=== PATIENT | male | born 1980 | race Caucasian/White ===

== ENCOUNTER 2017-07-13 13:25 | Emergency (ER) | payer MEDICAID ==
[~2017-07-13] VITALS: Wt 68.1 kg
[~2017-07-13 13:25] MED LIST: CIPR500T4 PO; METR500T PO; ONDA-43 PO
[2017-07-13] MEDS ORDERED: IBUPROFEN 600 MG TAB PO ONE (14:00)
[2017-07-13] MEDS ORDERED: DIPHTH/TET/ACEL PERTUSS (ADULT) 0.5 ML VIAL IM* ONE (14:00)
--- NOTE | 2017-07-13 14:34 | RADRPT ---
PROCEDURE: XR Finger. CLINICAL INDICATION: Left fifth finger pain and trauma. TECHNIQUE: Three views of the left the fifth finger. COMPARISON: None. FINDINGS: The osseous structures are intact. No destructive bony lesions are observed. Interosseous spaces jayme ear normal. Linear metallic density material is identified in the ventral soft tissues over the tuf t of the fifth distal phalanx. IMPRESSION: Linear metallic density material in the ventral soft tissues over the tuft of the fifth distal phala nx. This may reflect foreign body material in the soft tissues. If further characterization is neede d CT could be helpful. If there is high clinical suspicion for bony traumatic injury, further evaluation with CT should be considered. RPTAT: AA .Wilfrid Liriano MD, Date Time Electronically viewed and signed by .Wilfrid Liriano MD, MD on 07/13/2017 14:34 .P/
--- NOTE | 2017-07-13 15:31 | RADRPT ---
AMENDMENT: 07/13/2017 3:43:47 PM Emmanuel Sigala M.d Comparison: 07/13/2017 from 02:19 p.m. PROCEDURE: XR Finger. CLINICAL INDICATION: Foreign body removal in the left fifth digit TECHNIQUE: Three views of the left fifth digit. COMPARISON: None. FINDINGS: There are no fractures or dislocations. The previously noted foreign body in the distal fifth digit has decrease with a small 2 mm residual component. No radiopaque foreign body is identified. IMPRESSION: Decrease in the previously noted foreign body in the distal fifth digit with a 2 mm residual compone nt. RPTAT: HPNM Physician Vimal Date Time Electronically viewed and signed by Physician Vimal on 07/13/2017 15:43 /
--- NOTE | 2017-07-13 15:40 | ERD ---
ER Documentation Chief Complaint Chief Complaint LEFT 5TH FINGER INJURY WHILE CLEANING SINK HPI This 28-year-old male complains of left fifth digit pain and bleeding. History is significant for cleaning a sink in getting some broken ceramic in the tip of his left fifth digit. Denies restricted range of motion weakness. Tetanus is not up-to-date. ROS All systems reviewed and are negative except as per history of present illness. Medications Home Meds Active Scripts Cephalexin* (Keflex*) 500 Mg Capsule, 500 MG PO QID for 7 Days, CAP Prov:EFREN BARLOW MD 07/13/17 Acetaminophen with Codeine (Acetaminophen-Cod #3 Tablet) 1 Each Tablet, 1 TAB PO Q6H Y for PAIN, #14 TAB Prov:EFREN BARLOW MD 07/13/17 Metronidazole* (Flagyl*) 500 Mg Tablet, 500 MG PO TID for 5 Days, TAB Prov:MADELIN CLARKE S. 12/27/15 Ciprofloxacin Hcl* (Ciprofloxacin Hcl*) 500 Mg Tablet, 500 MG PO BID for 5 Days , TAB Prov:MADELIN CLARKE S. 12/27/15 Ondansetron Hcl* (Zofran*) 4 Mg Tab, 4 MG PO Q6H Y for NAUSEA AND OR VOMITING for 14 Days, TAB Prov:MADELIN CLARKE S. 12/27/15 Allergies Allergies: Coded Allergies: No Known Allergy (Unverified , 12/25/15) PMhx/Soc History of Surgery: No Anesthesia Reaction: No Hx Neurological Disorder: No Hx Respiratory Disorders: No Hx Cardiac Disorders: No Hx Psychiatric Problems: No Hx Miscellaneous Medical Probl: No Hx Alcohol Use: Yes (OCCASSIONAL ) Hx Substance Use: No Hx Tobacco Use: No Physical Exam Vitals Vital Signs Date Time Temp Pulse Resp B/P Pulse Ox O2 Delivery O2 Flow Rate FiO2 07/13/17 13:27 98.4 64 18 141/70 98 Physical Exam Const: [] Alert, [id number]. Head: Atraumatic Eyes: Normal Conjunctiva ENT: Normal External Ears, Nose and Mouth. Neck: Full range of motion..~ No meningismus. Resp: Clear to auscultation bilaterally Cardio: Regular rate and rhythm, no murmurs Abd: Soft, non tender, non distended. Normal bowel sounds Skin: No petechiae or rashes Back: No midline or flank tenderness Ext: No cyanosis, or edema. There are 2 small lacerations at the pad of the left third digit. There is no restricted range of motion weakness or redness or active bleeding. Neur: Awake and alert Psych: Normal Mood and Affect Results 24 hrs Current Medications Medications (Trade) Dose Ordered Sig/Eneida Route PRN Reason Start Time Stop Time Status Last Admin Dose Admin Diphtheria/ Tetanus/Acell Pertussis (Adacel) 0.5 ml ONCE ONCE IM* 07/13/17 14:00 07/13/17 14:01 DC 07/13/17 13:58 Ibuprofen (Motrin) 600 mg ONCE ONCE PO 07/13/17 14:00 07/13/17 14:01 DC 07/13/17 13:58 Cephalexin (Keflex) 500 mg ONCE ONCE PO 07/13/17 16:00 07/13/17 16:01 DC 07/13/17 16:11 Procedures/MDM X-ray left pinky finger 2V Interpreted by me: Bones: No fracture Joints: No dislocation Foreign body: A few radiopaque foreign bodies on the pad of the left fifth digit. Patient was given tetanus booster. Seizure note-left fifth digit was prepped with Betadine. Digital block was performed using 2 cc of lidocaine and small amount of Marcaine. Anesthesia was obtained. Incision was made. Several flakes of paint or ceramic were removed. X-ray was foreign body removal left pinky finger 2V Interpreted by me: Bones: No fracture Joints: No dislocation Foreign body: Central 2 mm radiopaque foreign body on the left fifth digit pad. Further exploration was performed. A flake of ceramic consistent with a residual foreign body was removed. X-ray left pinky finger 2V Interpreted by me: Bones: No fracture Joints: No dislocation Foreign body: None impression-resolved foreign body left fifth digit x-ray. 3 5-0 nylon sutures used to reapproximate the laceration from the procedure. Patient tolerated procedure well and the wound was dressed. Discharged home with a prescription of Keflex and Tylenol No. 3 and instructions for wound check in 2 days and suture removal in approximately 7 days. He should return sooner for fevers, redness, new worsening symptoms. There is no evidence of deficits, fracture, dislocation, current signs of infection. The was placed in left fifth digit middle splint protection, and was neurovascular intact after the splint. Departure Diagnosis: Primary Impression: Finger laceration Encounter type: initial encounter Finger: unspecified finger Damage to nail status: unspecified Foreign body presence: unspecified Laterality: left Qualified Code: S61.219A - Laceration of finger of left hand, foreign body presence unspecified, nail damage status unspecified, unspecified finger, initial encounter Additional Impression: Foreign body (FB) in soft tissue Condition: Stable EFREN BARLOW MD Jul 13, 2017 15:40
[2017-07-13] MEDS ORDERED: CEPH-443 PO (15:49)
[2017-07-13] MEDS ORDERED: ACET1TAB40 PO (15:49)
[2017-07-13] MEDS ORDERED: CEPHALEXIN 500 MG CAP PO ONE (16:00)
--- NOTE | 2017-07-13 16:27 | RADRPT ---
PROCEDURE: XR Finger. CLINICAL INDICATION: Trauma. Left fifth finger pain. Foreign body removal. TECHNIQUE: Three views. Frontal, lateral, and oblique. COMPARISON: Prior study done earlier the same day. FINDINGS: There is no fracture or dislocation. The soft tissues are normal. Articular surfaces are intact. There is no lytic or blastic lesion. The previously noted radiopaque foreign body in the soft tissues of the terminal tuft region anterio rly has been removed. There is no residual radiopaque foreign body.. IMPRESSION: 1. Normal images of the left fifth finger. 2. There is no residual radiopaque foreign body. RPTAT: QQ .Gurvinder Rehman MD, MD Date Time Electronically viewed and signed by .Gurvinder Rehman MD, on 07/13/2017 16:27 .R/
== END 2017-07-13 16:45 | disposition home or self-care (01) ==
LOC: FTE 13:25
DX: S61.227A Laceration with foreign body of left little finger without damage to nail, initial encounter (principal); W45.8XXA Other foreign body or object entering through skin, initial encounter; Y92.9 Unspecified place or not applicable; Z23 Encounter for immunization
CPT/HCPCS: 12041; 73140; 90471; 90715; Z7502; Z7610

== ENCOUNTER 2017-07-15 07:18 | Emergency (ER) | payer MEDICAID ==
[~2017-07-15] VITALS: Wt 62.5 kg
[~2017-07-15 07:18] MED LIST changes: +ACET1TAB40 PO; +CEPH-443 PO
--- NOTE | 2017-07-15 07:46 | ERD ---
ER Documentation Chief Complaint Chief Complaint wound recheck on left 5th digit HPI This is a 36-year-old male who presents the emergency department today for wound check of sutures that he had placed on his hands 2 days ago. Patient states that he started taking his antibiotics yesterday. States the medication he is taking for pain is helpful. Denies any fevers or chills. ROS All systems reviewed and are negative except as per history of present illness. Medications Home Meds Active Scripts Cephalexin* (Keflex*) 500 Mg Capsule, 500 MG PO QID for 7 Days, CAP Prov:EFREN BARLOW MD 07/13/17 Acetaminophen with Codeine (Acetaminophen-Cod #3 Tablet) 1 Each Tablet, 1 TAB PO Q6H Y for PAIN, #14 TAB Prov:EFREN BARLOW MD 07/13/17 Metronidazole* (Flagyl*) 500 Mg Tablet, 500 MG PO TID for 5 Days, TAB Prov:MADELIN CLARKE S. 12/27/15 Ciprofloxacin Hcl* (Ciprofloxacin Hcl*) 500 Mg Tablet, 500 MG PO BID for 5 Days , TAB Prov:MADELIN CLARKE S. 12/27/15 Ondansetron Hcl* (Zofran*) 4 Mg Tab, 4 MG PO Q6H Y for NAUSEA AND OR VOMITING for 14 Days, TAB Prov:MADELIN CLARKE S. 12/27/15 Allergies Allergies: Coded Allergies: No Known Allergy (Unverified , 12/25/15) PMhx/Soc History of Surgery: No Anesthesia Reaction: No Hx Neurological Disorder: No Hx Respiratory Disorders: No Hx Cardiac Disorders: No Hx Psychiatric Problems: No Hx Miscellaneous Medical Probl: No Hx Alcohol Use: Yes (OCCASSIONAL ) Hx Substance Use: Yes (marijuana) Hx Tobacco Use: No Physical Exam Vitals Physical Exam Const: NAD Head: Atraumatic Eyes: Normal Conjunctiva ENT: Normal External Ears, Nose and Mouth. Neck: Full range of motion..~ No meningismus. Resp: Clear to auscultation bilaterally Cardio: Regular rate and rhythm, no murmurs Abd: Soft, non tender, non distended. Normal bowel sounds Skin: No petechiae or rashes MSK: Left hand fifth finger with evidence of 3 sutures placed palmar aspect. Full active range of motion at joint. Pulses 2+. Good cap refill. No erythema warmth or purulent drainage. Neur: Awake and alert Psych: Normal Mood and Affect Procedures/MDM This a 36-year-old male presents the emergency department today for a wound check of sutures he had placed on his left hand 2 days ago. Upon review of patient's medical records he was seen here on July 13, 2017 for foreign body in his finger. Foreign body was removed at that time and patient was updated on his tetanus. Patient's x-ray showed no fracture. Patient is afebrile and otherwise well-appearing. His evidence of 3 sutures placed. There is no erythema or warmth. Low suspicion for sepsis, cellulitis or deep space tracking infection. Wound was recovered here in the emergency department. He may wear his splint as needed for comfort. He is instructed to return in 5-7 days for suture removal. He was also instructed to continue taking his antibiotics as prescribed. Patient understood and agreed with the plan. At this time the patient is stable for discharge and outpatient management. Patient should follow up with their PCP in the next 1-2 days. They may return to the emergency department sooner for any persistent or worsening of symptoms. Patient understood and agreed with the plan. Departure Diagnosis: Primary Impression: Encounter for wound re-check Condition: Fair Patient Instructions: Wound Check, Lac F/U (No Infection) Referrals: your PCP Additional Instructions: Call your primary care doctor TOMORROW for an appointment during the next 1-2 days.See the doctor sooner or return here if your condition worsens before your appointment time. Keep Wound clean and dry. Continue taking your antibiotics as prescribed. Wear splint for comfort. Suture removal in 5-7 days AUSTIN GARCIA PA-C Jul 15, 2017 07:46 appointment time. Keep Wound clean and dry. Continue taking your antibiotics as prescribed. Wear splint for comfort. Suture removal in 5-7 days AUSTIN GARCIA PA-C Jul 15, 2017 07:46
[2017-07-15 07:59] VITALS: BP 128/65; PULSE 66; RESP 17
== END 2017-07-15 08:00 | disposition home or self-care (01) ==
LOC: FTE 07:18
DX: Z48.01 Encounter for change or removal of surgical wound dressing (principal)
CPT/HCPCS: 99281

== ENCOUNTER 2017-07-23 12:38 | Emergency (ER) | END 2017-07-23 14:10 | disposition home or self-care (01) | DX: Z48.02 Encounter for removal of sutures (principal) ==